=== PATIENT | male | born 1940 | race Hispanic/Latino ===

== ENCOUNTER 2020-11-25 07:43 | Inpatient (IN) | payer MEDICARE, MEDICAID ==
--- NOTE | 2020-11-25 09:35 | PDOC.HHP ---
Hospitalist HPI Abdominal pain History of Present Illness: 80-year-old male with hypertension, diabetes mellitus type 2, hyp erlipidemia and hernia repair in the past presented to the emergency room at [facility] with abdominal pain that started yesterday around 11 AM (11/24). Abdominal pain was diffuse, moderate in intensity, constant aggravated by eating. He denied any relieving factor. He had eaten half of hamburger around 11 AM when his pain started. He felt nauseous however denies any vomiting. His last bowel movement was on 11/23. He denies any chest pain, palpitations, fever, hematemesis, melena, hematochezia or weight loss. In the emergency room at [facility] his initial vital signs show temperature 36.8 C, pulse rate of 78, respiration of 20 with a blood pressure 154/92 with O2 saturation of 92% on room air. His CT scan of the abdomen was consistent with small bowel obstruction with transition at the level of proximal ileum. He was transferred to this facility for higher level of care. Allergies/Adverse Reactions: Allergy/AdvReac Type Severity Reaction Status Date / Time No Known Allergies Allergy Unverified 11/25/20 09:36 Comments: To be verified. Patient takes Metformin and tramadol Past History: PAST MEDICAL HISTORY: Hypertension, diabetes mellitus type 2, benign prostatic hypertrophy, hyperlipidemia, obesity PAST SURGICAL HISTORY: Hernia repair ALLERGIES: No known drug allergies SOCIAL HISTORY: Smokes up to 4 cigarettes a day. Quit alcohol use. Denies any drug abuse. Currently lives at home with family in [facility] FAMILY HISTORY: Diabetes runs in his family. No history of GI malignancy. Hospitalist HPI ROS Constitutional: denies: fever, chills, sweats, weakness, malaise, other Respiratory: denies: cough, dry, shortness of breath, hemoptysis, SOB with excertion, pleuritic pain, sputum, wheezing, other Cardiovascular: denies: chest pain, palpitations, orthopnea, paroxysmal noc. dyspnea, edema, light headedness, other Musculoskeletal: denies: neck pain, shoulder pain, arm pain, back pain, hand pain, leg pain, foot pain, other All other systems reviewed; all pertinent +/- noted in HPI/Subj Hospitalist Exam General Appearance: NAD, awake alert Eye: PERRL, anicteric sclera ENT: normocephalic atraumatic, no oropharyngeal lesions Neck: supple, symmetric, no JVD Heart: RRR, no gallops, no rubs, normal peripheral pulses Respiratory: no wheezes, no rales, no ronchi, normal chest expansion Gastrointestinal: soft, no guarding, no rigidity, tender to palpation (in upper quadrants), distended Gastrointestinal - other findings: Hyperactive BS Extremities: no cyanosis, no clubbing, no edema Extremities - other findings: No calf tenderness Skin: normal turgor, no lesions Neurological: normal sensation to touch, no weakness, no focal deficits Musculoskeletal: normal tone, normal strength Psychiatric: normal affect, A&O x 3 Hospitalist Results Lab results: Labs obtained from [facility] Chemistry showed sodium 141, potassium 3.5, chloride 103, bicarb 28, BUN 14.6, creatinine 0.8, glucose 158, total bilirubin 1.6, AST 14, ALT 13, amylase of 49 and lipase of 5. Troponin was negative. CBC showed WBC 11.2, hemoglobin 16.2, hematocrit 47.3 with platelet of 183. Urinalysis was negative for WBC or bacteria ketones were positive CT scan - Ab/Pelvis Status: report reviewed by me (From [facility]) Additional Comments: Small bowel obstruction with transition at the level of the proximal ileum. The distal small bowel loop appeared normal in caliber. 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 Sinus rhythm Hospitalist H&P A/P (1) Small bowel obstruction Code(s): K56.609 - UNSP INTESTNL OBST, UNSP TO PARTIAL VERSUS COMPLETE OBST Status: Acute (2) Diabetes mellitus type 2 in obese Code(s): E11.69 - TYPE 2 DIABETES MELLITUS WITH OTHER SPECIFIED COMPLICATION; E66.9 - OBESITY, UNSPECIFIED Status: Chronic (3) Hypertension Code(s): I10 - ESSENTIAL (PRIMARY) HYPERTENSION Status: Chronic (4) Hyperlipidemia Code(s): E78.5 - HYPERLIPIDEMIA, UNSPECIFIED Status: Chronic (5) Benign prostatic hyperplasia Code(s): N40.0 - BENIGN PROSTATIC HYPERPLASIA WITHOUT LOWER URINRY TRACT SYMP Status: Chronic Plan: 80-year-old male with diabetes mellitus type 2 and hernia repair in the past presents to [facility] emergency room with abdominal pain that started on 11/24 at 11 AM. He presented to the emergency room on 11/25 at 3:21 AM. His work-up was consistent with small bowel obstruction. Small bowel obstruction with transition at the level of proximal ileum Plan: Patient denies any nausea or vomiting. We will start him on IV fluids and keep him n.p.o. Two-view abdominal x-ray will be obtained. Close monitoring. Vital signs appear stable. His labs were reviewed. General surgery consultation. I discussed the case with Dr. Rebolledo. Diabetes mellitus type 2 Plan: We will start insulin sliding scale. Based on his blood sugar we may have to add dextrose to his IV fluids. Hypertension Plan: As needed antihypertensives will be added Hyperlipidemia Plan: Resume home medications once verified Benign prostatic hypertrophy Patient denies any obstructive symptoms at this time. We will continue to monitor Plan of care was discussed with the patient in detail. He stated understanding
[2020-11-25] MEDS ORDERED: Ondansetron PF 4 MG/2 ML Vial IVP PRN (09:47)
[2020-11-25] MEDS ORDERED: Ondansetron ODT 4 MG TAB PO PRN (09:47)
[2020-11-25] MEDS ORDERED: Acetaminophen 650 MG Suppository PR PRN (09:47)
[2020-11-25 09:56] VITALS: BMI 36.6
[2020-11-25] MEDS ORDERED: Dextrose 5% in Water 1,000 ML IV PRN (09:56)
[2020-11-25] MEDS ORDERED: Insulin Regular 300 UNITS/3 ML VIAL SC PRN ×3 (09:56→10:26)
[2020-11-25] MEDS ORDERED: Dextrose 50% Abboject 50 ML SYRINGE SLOW IVP PRN (09:56)
[2020-11-25] MEDS ORDERED: hydrALAZINE 20 MG/ML VIAL SLOW IVP PRN (10:00)
[2020-11-25] MEDS ORDERED: 1/2 NS w/KCL 20 mEq 1,000 ML IV SCH (10:00)
[2020-11-25] MEDS ORDERED: Famotidine/PF 20 mg/2ml Vial SLOW IVP SCH (10:30)
--- NOTE | 2020-11-25 10:32 | RAD ---
EXAM: 2 views abdomen PROVIDED CLINICAL HISTORY: Small bowel obstruction COMPARISON: None FINDINGS: Visualized lung bases appear clear. Bowel gas pattern is nonspecific. No radiographically apparent ur inary tract calculi. No evidence for pneumoperitoneum. Contrast material seen within the renal collecting systems and urinary bladder. IMPRESSION: Nonspecific bowel gas pattern.
[2020-11-25] MEDS: D5 1/2 NS w/20 mEq KCL 1,000 ML IV SCH ×3 (11:19→20:51)
[2020-11-25] MEDS: Acetaminophen 325 MG TAB PO PRN (12:09)
--- NOTE | 2020-11-25 15:21 | CON ---
DATE OF CONSULTATION: 11/25/2020 CHIEF COMPLAINT: Small-bowel obstruction. HISTORY OF PRESENT ILLNESS: This is a 80-year-old male who presents with a history of colectomy with Radha's, colostomy takedown, and incisional hernia repair, who now presents with a history of small-bowel obstruction, transferred from [facility], complaining of abdominal pain. No vomiting. He has had normal bowel movement yesterday. No bowel movement today. He has never had previous intestinal obstruction before. He notes no significant complication of his previous colon surgery. PAST MEDICAL HISTORY: Includes: 1. Diabetes mellitus. 2. Hypertension. 3. BPH. 4. Hyperlipidemia. 5. Morbid obesity. SURGICAL HISTORY: As above. MEDICATIONS: Mediciens taken at home: See list. ALLERGIES: NO KNOWN DRUG ALLERGIES. SOCIAL HISTORY: No smoking or alcohol or other drugs. REVIEW OF SYSTEMS: Ten-system review of systems is otherwise negative unless described above. PHYSICAL EXAMINATION: VITAL SIGNS: Blood pressure 130/82, pulse 75, and respirations 18. He is afebrile. HEENT: Sclerae anicteric. Oropharynx clear. NECK: No lymphadenopathy. CHEST: Clear. HEART: Regular rate. ABDOMEN: Soft, distended, diffuse mildly tender without guarding or rebound. He has reducible incisional hernia at the colostomy site. No incisional hernia in the midline. EXTREMITIES: No ischemia or edema to extremities. LABORATORY DATA: Labs were all done at [facility], showing normal white blood cell count, normal hemoglobin, and normal creatinine. CT scan reviewed from outside hospital showing evidence of dilated mid intestine with decompressed distal intestine. ASSESSMENT: Small bowel obstruction, likely from adhesions from previous surgery. PLAN: N.p.o. today. Gastrografin small-bowel follow-through tomorrow. I suspect it will be normal. We could plan elective incisional hernia repair at later date. TIME SPENT: 30 minutes spent in discussion with the patient and review of labs and x-rays. Job ID: [id number]
[2020-11-25] MEDS ORDERED: Labetalol HCl 100 MG/20 ML VIAL SLOW IVP PRN (16:18)
[2020-11-25 17:00] LABS: SARS-CoV-2 PCR by NAA Not Detected (NotDetected)
[2020-11-25] MEDS: Fentanyl 100 MCG/2 ML VIAL SLOW IVP PRN ×2 (18:38→23:58)
[2020-11-25] MEDS: Famotidine/PF 20 mg/2ml Vial SLOW IVP SCH (20:50)
[2020-11-25] MEDS: Enoxaparin Sodium 40 MG/0.4 ML SYRINGE SC SCH (20:50)
[2020-11-26] MEDS: Fentanyl 100 MCG/2 ML VIAL SLOW IVP PRN ×2 (05:15→09:22)
[2020-11-26] MEDS: D5 1/2 NS w/20 mEq KCL 1,000 ML IV SCH ×3 (05:16→20:41)
[2020-11-26 05:41] LABS: #Eosinphils 0.1 thou/uL (0.0-0.7); #Lymphocytes 1.1 thou/uL (1.20-3.40); #Monocytes 0.8 thou/uL (0.11-0.59); #Neutrophils 7.5 thou/uL (1.40-6.50); %Basophils 0.2 % (0.0-1.0); %Eosinophils 0.6 % (0.0-10.0); %Lymphocytes 11.6 % (21.0-51.0); %Monocytes 8.6 % (0.0-10.0); Hemoglobin 15.7 g/dL (14.0-18.0); Mean Corpuscular HGB CONC 33.4 g/dL (32.0-36.0); Mean Corpuscular Hemoglobin 32.1 pg (27.0-31.0); Mean Corpuscular Volume 96.2 fL (78.0-98.0); Mean Platelet Volume 8.2 fL (7.4-10.4); Platelet Count 197 thou/uL (130-400); RBC Distribution Width 11.5 % (11.5-14.5); White Blood Cell (WBC) Count 9.5 thou/uL (4.8-10.8)
[2020-11-26 05:57] LABS: Lactic Acid 1.7 mmol/L (0.5-2.2)
[2020-11-26 05:59] LABS: Phosphorus 2.3 mg/dL (2.3-4.7)
[2020-11-26 06:03] LABS: ALT (SGPT) 9 U/L (8-55); AST (SGOT) 11 U/L (5-34); Albumin 3.8 g/dL (3.4-4.8); Alkaline Phosphatase 61 U/L (40-110); Anion Gap 9 mmol/L (10-20); BUN (Urea Nitrogen) 9 mg/dL (8.4-25.7); Bilirubin, Total 1.8 mg/dL (0.2-1.2); Calc. Creatinine Clearance 106 mL/min (70-130); Calcium 9.8 mg/dL (7.8-10.44); Carbon Dioxide 30 mmol/L (23-31); Chloride 104 mmol/L (98-107); Glucose 167 mg/dL (83-110); Magnesium 1.7 mg/dL (1.6-2.6); Potassium 3.9 mmol/L (3.5-5.1); Protein, Total 6.8 g/dL (5.8-8.1); Sodium 139 mmol/L (136-145)
[2020-11-26] MEDS ORDERED: Magnesium 2 GM/50 ML 2 GM in Premix Bag 1 BAG IVPB SCH (08:00)
[2020-11-26] MEDS: Famotidine/PF 20 mg/2ml Vial SLOW IVP SCH ×2 (08:55→21:50)
[2020-11-26] MEDS ORDERED: Enoxaparin Sodium 40 MG/0.4 ML SYRINGE SC SCH (09:00)
--- NOTE | 2020-11-26 14:10 | RAD ---
Small bowel follow-through: 11/26/2020 HISTORY: Small bowel obstruction FINDINGS: The eye care professional imaging demonstrates gas within a non-dilated stomach. There is gas within nondis tended colon and there are gas-filled dilated loops of small bowel throughout the abdomen/pelvis measuring up to approximately 6 cm in transverse dimension. Supine imaging limits assessment for free intraperitoneal air. The patient ingested Gastrografin. On the initial post ingestion imaging there is contrast media with in the duodenum and stomach (15 minutes). At 30 minutes the contrast media has entered dilated proximal small bowel loops. There has been been progression of the contrast media into additional pro ximal and mid abdominal distended small bowel loops on the 45 minute and 1 hour image. At 2 hours the contrast media has reached the colon with contrast media overlying the region of the rectum, the sigmoid colon, the descending colon, and the hepatic flexure. IMPRESSION: Contrast media reaches the colon by 2 hours. There are persistent dilated loops of small bowel throughout the abdomen/pelvis suggesting ileus or partial small bowel obstruction. Recommend a follow-up KUB to evaluate timing of the full passage of the contrast media.
[2020-11-26] MEDS ORDERED: MD-Gastroview 120 ML BOT ONE (15:23)
--- NOTE | 2020-11-26 16:06 | PRG ---
DATE OF SERVICE: 11/26/2020 SUBJECTIVE: Mr. King is having multiple bowel movements after his small bowel follow-through today. Denies nausea. OBJECTIVE: ABDOMEN: Soft, minimally distended, but nontender. ASSESSMENT: Resolving partial small-bowel obstruction. PLAN: Decrease IV fluids. Allow full liquid diet. I let him be discharged home tomorrow if doing well. Job ID: [id number]
[2020-11-26] MEDS: Acetaminophen 325 MG TAB PO PRN (17:59)
--- NOTE | 2020-11-26 18:03 | PDOC.HOSPP ---
- Subjective Encounter Date: 11/26/20 Encounter Time: 08:30 Subjective: Patient seen and examined for small bowel obstruction. He had a small bowel movement last night. Passing gas. Denies any nausea or vomiting - Objective Vital Signs & Weight: Vital Signs (12 hours) Temp Pulse Resp BP Pulse Ox 11/26/20 16:57 98.0 F 77 14 150/80 H 95 11/26/20 11:39 98.3 F 78 14 120/71 91 L 11/26/20 09:04 93 L 11/26/20 08:39 98.4 F 76 14 144/80 H 90 L Weight Weight 220 lb 3.869 oz I&O: 11/25/20 11/26/20 11/27/20 06:59 06:59 06:59 Intake Total 1085 Balance 1085 Result Diagrams: 11/26/20 05:28 11/26/20 05:28 Additional Labs: Accuchecks 11/26/20 11/26/20 11/26/20 16:40 14:27 05:39 POC Glucose 113 H 110 H 150 H 11/25/20 11/25/20 23:51 18:13 POC Glucose 135 H 154 H Abnormal Lab Results - Last 48 hrs 11/26/20 05:28: Anion Gap 9 L, Total Bilirubin 1.8 H 11/26/20 05:28: MCH 32.1 H, Neutrophils % 79.0 H, Lymphocytes % 11.6 L, Neutrophils # 7.5 H, Lymphocytes # 1.1 L, Monocytes # 0.8 H Radiology Reviewed by me: Yes (Small bowel follow-throughpartial small bowel obstruction) Hospitalist ROS - Review of Systems Respiratory: denies: cough, dry, shortness of breath, hemoptysis, SOB with excertion, pleuritic pain, sputum, wheezing, other Cardiovascular: denies: chest pain, palpitations, orthopnea, paroxysmal noc. dyspnea, edema, light headedness, other - Medication Medications: Active Medications Generic Name Dose Route Start Last Admin Trade Name Freq PRN Reason Stop Dose Admin Acetaminophen 650 mg 11/25/20 09:47 11/26/20 17:59 Acetaminophen 325 Mg Tab PO 650 mg Q4H PRN Administration Headache/Fever/Mild Pain (1-3) Enoxaparin Sodium 40 mg 11/25/20 21:00 11/25/20 20:50 Enoxaparin Sodium 40 Mg/0.4 Ml Syringe SC 40 mg 2100 CARLOS Administration Famotidine 20 mg 11/25/20 21:00 11/26/20 08:55 Famotidine/Pf 20 Mg/2ml Vial SLOW IVP 20 mg Q12HR CARLOS Administration Insulin Human Regular 0 units 11/25/20 10:26 11/25/20 18:45 Insulin Regular 300 Units/3 Ml Vial SC 2 unit .MODERATE SLIDING SC PRN Administration Moderate Correctional Scale Hospitalist Exam Vitals: Vital Signs (12 hours) Temp Pulse Resp BP Pulse Ox 11/26/20 16:57 98.0 F 77 14 150/80 H 95 11/26/20 11:39 98.3 F 78 14 120/71 91 L 11/26/20 09:04 93 L 11/26/20 08:39 98.4 F 76 14 144/80 H 90 L Weight Weight 220 lb 3.869 oz General Appearance: awake alert Neck: supple, no JVD Heart: RRR, no gallops Respiratory: no wheezes, no ronchi Gastrointestinal: soft, no guarding, no rigidity, diminished bowl sounds Extremities: no cyanosis Neurological: no focal deficits Hosp A/P (1) Small bowel obstruction Code(s): K56.609 - UNSP INTESTNL OBST, UNSP TO PARTIAL VERSUS COMPLETE OBST Status: Acute (2) Diabetes mellitus type 2 in obese Code(s): E11.69 - TYPE 2 DIABETES MELLITUS WITH OTHER SPECIFIED COMPLICATION; E66.9 - OBESITY, UNSPECIFIED Status: Chronic (3) Hypertension Code(s): I10 - ESSENTIAL (PRIMARY) HYPERTENSION Status: Chronic (4) Hyperlipidemia Code(s): E78.5 - HYPERLIPIDEMIA, UNSPECIFIED Status: Chronic (5) Benign prostatic hyperplasia Code(s): N40.0 - BENIGN PROSTATIC HYPERPLASIA WITHOUT LOWER URINRY TRACT SYMP Status: Chronic - Plan 80-year-old male with diabetes mellitus type 2 and hernia repair in the past presents to [facility] emergency room with abdominal pain that started on 11/24 at 11 AM. He presented to the emergency room on 11/25 at 3:21 AM. His work-up was consistent with small bowel obstruction. Partial small bowel obstruction Plan: Small bowel follow-through done earlier today. Started on full liquid diet. Patient will be monitored overnight per general surgery recommendation. Minimize narcotics. Diabetes mellitus type 2 We will continue sliding scale. Will reduce IV fluid and eventually discontinue it once tolerating p.o. well Hypertension Will restart metoprolol at 25 mg twice daily. Hyperlipidemia Will resume statins Benign prostatic hypertrophy Will restart Flomax Obesity with a BMI 36.6 Lifestyle modification emphasized Plan of care was discussed with the patient in detail. He stated understanding
[2020-11-26] MEDS: Metoprolol Tartrate 25 MG TAB PO SCH (20:57)
[2020-11-26] MEDS ORDERED: Tamsulosin HCl 0.4 MG CAP PO SCH (21:00)
[2020-11-26] MEDS: Enoxaparin Sodium 40 MG/0.4 ML SYRINGE SC SCH (21:49)
[2020-11-27] MEDS: D5 1/2 NS w/20 mEq KCL 1,000 ML IV SCH (03:05)
[2020-11-27 06:31] LABS: Phosphorus 2.1 mg/dL (2.3-4.7)
[2020-11-27 06:33] LABS: ALT (SGPT) 7 U/L (8-55); AST (SGOT) 9 U/L (5-34); Albumin 3.3 g/dL (3.4-4.8); Alkaline Phosphatase 52 U/L (40-110); Anion Gap 9 mmol/L (10-20); BUN (Urea Nitrogen) 9 mg/dL (8.4-25.7); Bilirubin, Total 1.3 mg/dL (0.2-1.2); Calc. Creatinine Clearance 119 mL/min (70-130); Calcium 9.4 mg/dL (7.8-10.44); Carbon Dioxide 25 mmol/L (23-31); Chloride 110 mmol/L (98-107); Globulin 2.4 g/dL (2.4-3.5); Glucose 117 mg/dL (83-110); Potassium 3.7 mmol/L (3.5-5.1); Protein, Total 5.7 g/dL (5.8-8.1); Sodium 140 mmol/L (136-145)
[2020-11-27] MEDS ORDERED: K-Phos Neutral 250 MG TAB PO SCH (08:00)
[2020-11-27] MEDS: Metoprolol Tartrate 25 MG TAB PO SCH (08:59)
[2020-11-27] MEDS ORDERED: Citalopram 20 MG TAB PO SCH (09:00)
[2020-11-27] MEDS ORDERED: Famotidine 20 MG TAB PO SCH (09:00)
[2020-11-27 11:23] VITALS: BP 131/76; TEMP 97.7
--- NOTE | 2020-11-27 11:45 | PRG ---
DATE OF SERVICE: 11/27/2020 SUBJECTIVE: Mr. King has no complaints. He has tried the liquids. He had normal small-bowel follow-through yesterday. OBJECTIVE: VITAL SIGNS: He is afebrile. Vital signs are stable. ABDOMEN: Minimally distended, but nontender. ASSESSMENT: Resolved partial small-bowel obstruction. PLAN: Discharged home. Follow up with me in 2 weeks. Job ID: [id number]
--- NOTE | 2020-11-27 17:58 | PDOC.DS.DS ---
Provider Date of Admission: 11/26/20 16:02 Date of Discharge: 11/27/20 Admitting Provider: Kevon Hudson MD Consultations: General Surgery Primary Care Physician: Unknown Course Hospital Course: History of Present Illness: 80-year-old male with hypertension, diabetes mellitus type 2, hyper lipidemia and hernia repair in the past presented to the emergency room at [facility] with abdominal pain that started yesterday around 11 AM (11/24). Abdominal pain was diffuse, moderate in intensity, constant aggravated by eating. He denied any relieving factor. He had eaten half of hamburger around 11 AM when his pain started. He felt nauseous however denies any vomiting. His last bowel movement was on 11/23. He denies any chest pain, palpitations, fever, hematemesis, melena, hematochezia or weight loss. In the emergency room at [facility] his initial vital signs show temperature 36.8 C, pulse rate of 78, respiration of 20 with a blood pressure 154/92 with O2 saturation of 92% on room air. His CT scan of the abdomen was consistent with small bowel obstruction with transition at the level of proximal ileum. He was transferred to this facility for higher level of care. Hospital course: Patient was admitted to the hospital with a diagnosis of small bowel obstruction. He was kept n.p.o. and was started on IV fluids. There was no need for NG tube per general surgery. He underwent small bowel follow-through that showed findings consistent with resolving partial small bowel obstruction. He was then started on liquid diet which he tolerated well. Patient has been cleared by general surgery for discharge. He will follow up with general surgery as outpatient for hernia repair. Final diagnosis: Partial small bowel obstruction Diabetes mellitus type 2 Hypertension Hyperlipidemia Benign prostatic hypertrophy Obesity with a BMI 36.6 Resuscitation Status: 11/25/20 09:47 Resuscitation Status Routine Resuscitation Status: FULL: Full Resuscitation Lab Results: 11/26/20 05:28 11/27/20 05:44 Abnormal Lab Results - Last 48 hrs 11/26/20 05:28: Anion Gap 9 L, Total Bilirubin 1.8 H 11/26/20 05:28: MCH 32.1 H, Neutrophils % 79.0 H, Lymphocytes % 11.6 L, Neutrophils # 7.5 H, Lymphocytes # 1.1 L, Monocytes # 0.8 H 11/27/20 05:44: Chloride 110 H, Anion Gap 9 L, Total Bilirubin 1.3 H, ALT 7 L, Serum Total Protein 5.7 L, Albumin 3.3 L 11/27/20 05:44: Phosphorus 2.1 L Vitals: Vital Signs (12 hours) Temp Pulse Resp BP Pulse Ox 11/27/20 11:21 97.7 F 69 14 131/76 95 11/27/20 07:52 98.4 F 74 12 145/67 H 92 L Weight Weight 220 lb 3.869 oz Physical Exam: The patient was seen and examined on the day of discharge. General Appearance: NAD Neck: supple, no JVD Respiratory: no wheezes, no ronchi Cardiovascular: RRR, no gallops Gastrointestinal: soft, normal bowel sounds, no guarding, no rigidity Problem (1) Small bowel obstruction Code(s): K56.609 - UNSP INTESTNL OBST, UNSP TO PARTIAL VERSUS COMPLETE OBST Status: Acute (2) Diabetes mellitus type 2 in obese Code(s): E11.69 - TYPE 2 DIABETES MELLITUS WITH OTHER SPECIFIED COMPLICATION; E66.9 - OBESITY, UNSPECIFIED Status: Chronic (3) Hypertension Code(s): I10 - ESSENTIAL (PRIMARY) HYPERTENSION Status: Chronic (4) Hyperlipidemia Code(s): E78.5 - HYPERLIPIDEMIA, UNSPECIFIED Status: Chronic (5) Benign prostatic hyperplasia Code(s): N40.0 - BENIGN PROSTATIC HYPERPLASIA WITHOUT LOWER URINRY TRACT SYMP Status: Chronic Plan Home Medications: Medication Instructions Recorded Confirmed Type Citalopram [CeleXA] 20 mg PO DAILY 11/25/20 11/25/20 History Lisinopril/Hydrochlorothiazide 1 tablet PO DAILY 11/25/20 11/25/20 History [Lisinopril-Hctz 20-12.5 mg Tab] Lovastatin [Altoprev] 20 mg PO DAILY 11/25/20 11/25/20 History Metoprolol Tartrate [Lopressor] 50 mg PO DAILY 11/25/20 11/25/20 History Tamsulosin HCl 0.4 mg PO DAILY 11/25/20 11/25/20 History metFORMIN [Glucophage] 1,000 mg PO QAM-WM 11/25/20 11/25/20 History Allergies: No Known Allergies Allergy (Unverified 11/25/20 09:36) Discharge Instructions:: CMP after 1 week - PCP to arrange/follow Referrals: [facility] [MD Not on Staff] - 7 Days Garland Joseph MD [Active] - 7 Days Disposition: HOME Quality CORE MEASURES:: N/A
== END 2020-11-27 17:00 | disposition home or self-care (01) | DRG 390 ==
LOC: SURG B 09:14 → OBSVTOIN 11-26 16:02
PROVIDERS: ADMIT Internal Medicine; ATTEND Internal Medicine
DX: K56.609 Unspecified intestinal obstruction, unspecified as to partial versus complete obstruction (principal); I10 Essential (primary) hypertension; E11.9 Type 2 diabetes mellitus without complications; E78.5 Hyperlipidemia, unspecified; N40.0 Benign prostatic hyperplasia without lower urinary tract symptoms; F17.210 Nicotine dependence, cigarettes, uncomplicated; E66.9 Obesity, unspecified; Z20.822 Contact with and (suspected) exposure to COVID-19; Z68.36 Body mass index [BMI] 36.0-36.9, adult
CPT/HCPCS: 36415; 36416; 74019; 74250; 80053; 83605; 83735; 84100; 85025; 87635; 96365; 96372; 96375; 96376; G0378; J1650; J1815; J3010; J3475; J3480; Q9963; S0028; U0003; U0005

== ENCOUNTER 2021-01-07 14:23 | Outpatient (CLI) | payer MEDICARE, MEDICAID ==
[2021-01-07 16:07] LABS: Anion Gap 12 mmol/L (10-20); BUN (Urea Nitrogen) 15 mg/dL (8.4-25.7); Calc. Creatinine Clearance 0 mL/min (70-130); Calcium 10.2 mg/dL (7.8-10.44); Carbon Dioxide 27 mmol/L (23-31); Chloride 106 mmol/L (98-107); Glucose 92 mg/dL (83-110); Potassium 4.1 mmol/L (3.5-5.1); Sodium 141 mmol/L (136-145)
[2021-01-07 16:10] LABS: #Basophils 0.1 10x3/uL (0.0-0.2); #Eosinphils 0.1 10x3/uL (0.0-0.5); #Monocytes 0.7 10x3/uL (0.0-1.1); #Neutrophils 4.8 10x3/uL (1.5-8.4); %Basophils 0.7 % (0.0-2.0); %Eosinophils 1.3 % (0.0-6.0); %Lymphocytes 22.8 % (18.0-47.0); %Neutrophils 65.9 % (40.0-75.0); Hemoglobin 14.9 g/dL (13.5-17.5); Mean Corpuscular HGB CONC 33.6 g/dL (32.0-36.0); Mean Corpuscular Volume 95.3 fl (81.2-95.1); Mean Platelet Volume 10.8 fl (7.4-10.4); Platelet Count 205 10x3/uL (150-450); RBC Distribution Width 12.2 % (11.5-14.5); Red Blood Cell (RBC) Count 4.66 10x6/uL (4.32-5.72); White Blood Cell (WBC) Count 7.2 10x3/uL (3.5-10.5)
[2021-01-08 02:10] LABS: SARS-CoV-2 PCR by NAA Not Detected (NotDetected)
== END 2021-01-07 14:24 | disposition home or self-care (01) ==
LOC: LABBT 14:23
PROVIDERS: ATTEND Surgery
DX: Z01.818 Encounter for other preprocedural examination (principal); Z20.822 Contact with and (suspected) exposure to COVID-19; K43.2 Incisional hernia without obstruction or gangrene
CPT/HCPCS: 80048; 85025; 93005; U0003; U0005; 87635; 93010

== ENCOUNTER 2021-01-10 05:55 | Day surgery (SDC) | payer MEDICARE, MEDICAID ==
[2021-01-09 12:22] VITALS: BMI 31.0
[2021-01-10] MEDS ORDERED: Lidocaine 2% w/Epinephrine 1:200K 20 ML VIAL ONE (06:34)
[2021-01-10] MEDS ORDERED: Bupivacaine 0.25% HCL 30 ML VIAL ONE (06:34)
[2021-01-10] MEDS ORDERED: Fentanyl 100 MCG/2 ML VIAL ONE ×2 (06:53→09:33)
[2021-01-10] MEDS ORDERED: Lidocaine 2% Jelly 5 ML TUBE ONE (06:54)
[2021-01-10] MEDS ORDERED: Rocuronium Bromide 10 MG/ML (10ML VIAL) ONE (07:34)
[2021-01-10] MEDS ORDERED: Albuterol Sulfate HFA (OR ONLY) ONE ×2 (07:34→08:36)
[2021-01-10] MEDS ORDERED: Lidocaine 1% PF 5 ML VIAL ONE (07:34)
[2021-01-10] MEDS ORDERED: ePHEDrine Sulfate 50 MG/10 ML VIAL ONE (07:34)
[2021-01-10] MEDS ORDERED: Glycopyrrolate 0.2 MG/ML 5 ML SYRINGE ONE (07:34)
[2021-01-10] MEDS ORDERED: PROPOFOL 200 MG/20 ML VIAL ONE (07:34)
[2021-01-10] MEDS ORDERED: Ondansetron PF 4 MG/2 ML Vial ONE (07:34)
[2021-01-10] MEDS ORDERED: HYDROcodone/Acetaminophen 5/325 mg Tablet ONE ×2 (11:23→12:02)
== END 2021-01-10 12:20 | disposition home or self-care (01) ==
LOC: SDC 05:55
PROVIDERS: ATTEND Surgery
PROC: 0WUF4JZ Supplement Abdominal Wall with Synthetic Substitute, Percutaneous Endoscopic Approach (ICD-10-PCS; principal; 2021-01-10)
DX: K43.2 Incisional hernia without obstruction or gangrene (principal); E11.9 Type 2 diabetes mellitus without complications; I10 Essential (primary) hypertension; F17.210 Nicotine dependence, cigarettes, uncomplicated; Z79.84 Long term (current) use of oral hypoglycemic drugs; Z79.899 Other long term (current) drug therapy
CPT/HCPCS: C1781; J0690; J2405; J2704; J3010; S0020